=== PATIENT | male | born 1990 | race Caucasian/White ===

== ENCOUNTER 2018-02-11 21:41 | Emergency (ER) | payer OTHER ==
[~2018-02-11] VITALS: Ht 175.3 cm; Wt 85.3 kg
[2018-02-11 21:44] VITALS: BP 169/92
--- NOTE | 2018-02-11 21:50 | NUR ---
Patient ambulated to bed 2.
--- NOTE | 2018-02-11 21:55 | NUR ---
PATIENT IS A 28 Y/O MALE WHO PRESENTS TO THE ED C/O HEADACHE. PT STATES THAT HE HAS A HISTORY OF MIGRAINES AND HE TOOK TYLENOL WITH NO RELIEF. PT REPORTS 3/10 ACHING FRONTAL HEADACHE PAIN THAT DOES NOT RADIATE. PT DENIES CP, SOB, N/V/D. PT AWAKE AND ALERT, RR EVEN/UNLABORED. PT REPOSITIONED FOR COMFORT, BED IN LOWEST POSITION. ER MD DR. RANDOLPH NOTIFIED. WILL CONTINUE TO MONITOR.
[2018-02-11] MEDS ORDERED: KETOROLAC 60 MG/2 ML VIAL IM ONE (22:05)
[2018-02-11 22:30] VITALS: BP 150/85
--- NOTE | 2018-02-11 22:30 | NUR ---
Patient discharged with v/s stable. Written and verbal after care instructions given and explained. Patient alert, oriented and verbalized understanding of instructions. Ambulatory with steady gait. All questions addressed prior to discharge. ID band removed. Patient advised to follow up with PMD. Rx of FIORINAL [id number] given. Patient educated on indication of medication including possible reaction and side effects. Opportunity to ask questions provided and answered.
== END 2018-02-11 22:30 | disposition home or self-care (01) ==
LOC: MED 21:41
DX: G43.909 Migraine, unspecified, not intractable, without status migrainosus (principal)
CPT/HCPCS: 96372; 99283; J1885